=== PATIENT | female | born 1945 | race Caucasian/White ===

== ENCOUNTER 2022-06-03 05:10 | Inpatient (IN) | payer OTHER, MEDICARE ==
[~2022-06-03] VITALS: Ht 172.7 cm; Wt 102.5 kg
[~2022-06-03 05:10] MED LIST: ACET-2634 PO; ACET325T PO; ANT30 PO; CAT.1 PO; DULO60CA42 PO; IBUP-1968 PO; LIP10 PO; LORA0.5T PO; METF-379 PO; METO50TA7 PO; MOM PO; SER25 PO; Theragran PO; ZOLP5TAB2 PO
[2022-06-03 07:08] LABS: INR 0.9 (0.8-1.2); PROTHROMBIN TIME 9.8 SECS (9.5-12.5)
[2022-06-03] MEDS ORDERED: DULO60CA42 PO (07:12)
[2022-06-03] MEDS ORDERED: BUPR75TA20 PO (07:12)
[2022-06-03] MEDS ORDERED: METF-1069 PO (07:12)
[2022-06-03] MEDS ORDERED: TELM1TAB34 PO (07:12)
[2022-06-03] MEDS ORDERED: DAPA10TA PO (07:12)
[2022-06-03] MEDS ORDERED: LEVO75TA7 PO (07:12)
[2022-06-03] MEDS ORDERED: LIP10 PO (07:12)
[2022-06-03] MEDS ORDERED: QUET50TA PO (07:12)
[2022-06-03] MEDS ORDERED: ACETAMINOPHEN I.V. 1000 MG 100 ML IV ONE (07:16)
[2022-06-03] MEDS ORDERED: LIDOCAINE 2%, 20 ML MDV ONE (07:20)
[2022-06-03] MEDS ORDERED: LR 1,000 ML IV.SOLN IV ONE (07:20)
[2022-06-03] MEDS ORDERED: ceFAZolin SODIUM 2 GM VIAL ONE (07:20)
[2022-06-03] MEDS ORDERED: MIDAZOLAM HCL 2 MG/2 ML VIAL (VERSED) ONE (07:20)
[2022-06-03] MEDS ORDERED: TRANEXAMIC ACID 1,000 MG/10 ML VIAL ONE (07:20)
[2022-06-03] MEDS ORDERED: ROCURONIUM BROMIDE 10 MG/ML (ZEMURON) ONE (07:20)
[2022-06-03] MEDS ORDERED: VANCOMYCIN HCL 1000 MG/VIAL IV ONE (07:20)
[2022-06-03] MEDS ORDERED: NEOSTIGMINE METHYLSULFATE 1 MG/ML, 10 ML VIAL ONE (07:20)
[2022-06-03] MEDS ORDERED: BUPIVACAINE /PF 0.75% 10 ML VIAL INJ ONE (07:20)
[2022-06-03] MEDS ORDERED: NS IRRIG SOLN 1000 ML IR ONE (07:20)
[2022-06-03] MEDS ORDERED: NS 1000 ML IV.SOLN IV ONE (07:20)
[2022-06-03] MEDS ORDERED: ALBUTEROL MDI INHALATION 8 GM INH ONE (07:20)
[2022-06-03] MEDS ORDERED: ONDANSETRON HCL 4 MG/2 ML VIAL ONE (07:20)
[2022-06-03] MEDS ORDERED: PHENYLEPHRINE HCL 10 MG/ML VIAL (NEOSYNEPHRINE) ONE (07:20)
[2022-06-03] MEDS ORDERED: PROPOFOL 200MG/ 20ML VIAL (DIPRIVAN) IV ONE (07:20)
[2022-06-03] MEDS ORDERED: SUGAMMADEX SODIUM 200 MG/2 ML VIAL IV ONE (07:20)
[2022-06-03] MEDS ORDERED: DESFLURANE 15 MIN GAS INH ONE (07:20)
[2022-06-03] MEDS ORDERED: MORPHINE SULFATE 10MG/10ML PF AMP ONE (07:20)
[2022-06-03] MEDS ORDERED: METOPROLOL TARTRATE 5 MG/5 ML VIAL ONE (07:20)
[2022-06-03] MEDS ORDERED: METF-379 PO (07:24)
[2022-06-03] MEDS ORDERED: BUPIVACAINE LIPOSOME/PF 266 MG/20 ML VIAL INFIL ONE (08:45)
[2022-06-03] MEDS ORDERED: NALOXONE HCL 0.4 MG/ML AMP (NARCAN) IVP PRN ×4 (09:00→11:00)
[2022-06-03] MEDS ORDERED: NACL 0.9% 1,000 ML IV SCH (09:00)
[2022-06-03] MEDS ORDERED: ONDANSETRON HCL 4 MG/2 ML VIAL IVP PRN ×2 (09:00→11:45)
[2022-06-03] MEDS ORDERED: MEPERIDINE HCL/PF 25 MG/ML DISP.SYRIN IVP PRN (09:00)
[2022-06-03] MEDS ORDERED: METOCLOPRAMIDE HCL 10 MG/2 ML VIAL IVP PRN ×2 (09:00→11:00)
[2022-06-03] MEDS ORDERED: HYDROmorphone 1 MG/ML INJ. CARTRIDGE IVP PRN ×3 (09:00→11:00)
[2022-06-03] MEDS ORDERED: hydrALAZINE HCL 20 MG/ML VIAL IVP PRN (09:00)
[2022-06-03] MEDS ORDERED: DIPHENHYDRAMINE INJ 50 MG/ML VIAL IVP PRN (09:00)
[2022-06-03] MEDS ORDERED: LABETALOL 100 MG/ 20ML VIAL IVP PRN (09:00)
[2022-06-03] MEDS ORDERED: ePHEDrine sulfate 50 MG/ML VIAL IVP PRN (09:00)
[2022-06-03] MEDS ORDERED: BISACODYL 10 MG/SUPPOSITORY RC PRN (11:00)
[2022-06-03] MEDS ORDERED: DIPHENHYDRAMINE HCL 25 MG CAPSULE PO PRN (11:00)
[2022-06-03] MEDS ORDERED: LACTULOSE 20 GM/30 ML UDC PO PRN (11:00)
[2022-06-03] MEDS ORDERED: oxyCODONE HCL 5 MG TABLET PO PRN (11:00)
[2022-06-03] MEDS ORDERED: traMADol HCL HCL 50 MG TABLET (ULTRAM) PO PRN (11:00)
[2022-06-03] MEDS ORDERED: LORATADINE 10 MG TABLET PO PRN (11:00)
[2022-06-03] MEDS ORDERED: D5W 1,000 ML IV PRN (11:15)
[2022-06-03] MEDS ORDERED: DEXTROSE 50% JECT 50 ML DISP.SYRIN IVP PRN (11:15)
[2022-06-03] MEDS ORDERED: GLUCOSE (DEXTROSE) ORAL GEL -Adults PO PRN (11:15)
[2022-06-03] MEDS ORDERED: HYDROmorphone 1 MG/ML INJ. CARTRIDGE ONE (11:29)
[2022-06-03] MEDS: HYDROmorphone 1 MG/ML INJ. CARTRIDGE IVP PRN ×3 (11:44→17:23)
[2022-06-03] MEDS ORDERED: TRANEXAMIC ACID 1,000 MG in NS 50 ML IV ONE (11:45)
[2022-06-03] MEDS ORDERED: TRANEXAMIC ACID 1,000 MG/10 ML VIAL IV ONE (11:45)
[2022-06-03] MEDS: ceFAZolin SODIUM 2 GM in D5W 50 ML IV SCH ×2 (13:47→21:13)
[2022-06-03 14:35] VITALS: BP_SYST 111
[2022-06-03] MEDS: ACETAMINOPHEN 500 MG TABLET PO SCH ×2 (14:57→21:07)
[2022-06-03 16:20] VITALS: BP_SYST 129
[2022-06-03 20:00] VITALS: BP_SYST 121
[2022-06-03] MEDS: oxyCODONE HCL 5 MG TABLET PO PRN (21:07)
[2022-06-03] MEDS: SENNOSIDES/DOCUSATE SODIUM 1 TAB TABLET(SENOKOT-S) PO SCH (21:08)
[2022-06-04] MEDS: HYDROmorphone 1 MG/ML INJ. CARTRIDGE IVP PRN ×3 (00:21→05:50)
[2022-06-04 00:46] VITALS: BP_SYST 131
[2022-06-04] MEDS: ceFAZolin SODIUM 2 GM in D5W 50 ML IV SCH (04:53)
[2022-06-04] MEDS: INSULIN REGULAR, HUMAN 100 UNITS/ML, 3 ML VIAL (humuLIN R) SUBCUT PRN ×3 (05:56→21:39)
[2022-06-04] MEDS: ACETAMINOPHEN 500 MG TABLET PO SCH ×3 (06:00→21:36)
[2022-06-04 06:28] LABS: BASOPHILS # (AUTO) 0.1 K/uL (0.0-0.2); BASOPHILS % (AUTO) 0.7 % (0.0-2.0); EOSINOPHILS # (AUTO) 0.1 K/uL (0.0-0.4); EOSINOPHILS % (AUTO) 1.7 % (0.0-4.0); HEMATOCRIT 28.3 % (36-48); HEMOGLOBIN 9.4 g/dL (12.0-16.0); LYMPHOCYTES # (AUTO) 0.8 K/uL (1.0-5.5); LYMPHOCYTES % (AUTO) 10.3 % (20.5-51.5); MEAN CORPUSCULAR HEMOGLOBIN 31 pg (27-31); MEAN CORPUSCULAR HGB CONC 33 % (32-36); MEAN CORPUSCULAR VOLUME 92 fL (79.0-98.0); MONOCYTES # (AUTO) 0.6 K/uL (0.0-1.0); MONOCYTES % (AUTO) 7.6 % (1.7-9.3); NEUTROPHILS # (AUTO) 6.3 K/uL (1.8-7.7); NEUTROPHILS % (AUTO) 79.7 % (40.0-70.0); PLATELET COUNT (AUTO) 114 K/uL (130-430); RED BLOOD CELL COUNT(AUTO) 3.07 MIL/uL (4.2-6.2); RED CELL DISTRIBUTION WIDTH 14.3 % (9.0-15.0); WHITE BLOOD COUNT (AUTO) 7.9 K/uL (4.8-10.8)
[2022-06-04 07:11] LABS: ALANINE AMINOTRANSFERASE 19 U/L (12-78); ALBUMIN 3.1 g/dL (3.4-4.8); ANION GAP 9 (5-15); ASPARTATE AMINOTRANSFERASE 25 U/L (10-37); CALCIUM 8.6 mg/dL (8.4-11.0); CHLORIDE 104 mmol/L (98-107); CREATININE 1.36 mg/dL (0.55-1.30); GLUCOSE 179 mg/dL (70-99); TOTAL BILIRUBIN 0.3 mg/dL (0.0-1.0); UREA NITROGEN, BLOOD 15 mg/dL (8-21)
[2022-06-04 07:58] VITALS: BP_SYST 146
[2022-06-04] MEDS: SENNOSIDES/DOCUSATE SODIUM 1 TAB TABLET(SENOKOT-S) PO SCH ×2 (08:36→21:30)
[2022-06-04] MEDS: ASPIRIN 81 MG TAB.CHEW PO SCH ×2 (08:36→21:28)
[2022-06-04] MEDS: CELECOXIB 200 MG CAPSULE PO SCH ×2 (11:20→23:37)
[2022-06-04 11:32] VITALS: BP_SYST 122
[2022-06-04] MEDS: oxyCODONE HCL 5 MG TABLET PO PRN ×2 (11:33→17:37)
[2022-06-04] MEDS ORDERED: CEFA250S32 PO (11:39)
[2022-06-04] MEDS ORDERED: OXYIR5 PO (11:39)
[2022-06-04] MEDS ORDERED: ASA81 PO (11:39)
[2022-06-04] MEDS: cephALEXin 500 MG CAPSULE PO SCH ×2 (14:01→21:29)
[2022-06-04 15:30] VITALS: BP_SYST 92
[2022-06-04 17:37] VITALS: BP_SYST 125
[2022-06-04 20:00] VITALS: BP_SYST 100
[2022-06-04] MEDS ORDERED: ATORVASTATIN 10 MG TABLET PO SCH (21:00)
[2022-06-04] MEDS: QUEtiapine FUMARATE 100 MG TABLET PO SCH (21:29)
[2022-06-05 00:14] VITALS: BP_SYST 126
[2022-06-05] MEDS: ACETAMINOPHEN 500 MG TABLET PO SCH (05:19)
[2022-06-05 05:47] VITALS: BP_SYST 128
[2022-06-05] MEDS ORDERED: LEVOTHYROXINE SODIUM 0.075 MG TABLET PO SCH (07:00)
[2022-06-05 07:42] VITALS: BP_SYST 128
[2022-06-05] MEDS: ASPIRIN 81 MG TAB.CHEW PO SCH (08:09)
[2022-06-05] MEDS: cephALEXin 500 MG CAPSULE PO SCH (08:10)
[2022-06-05] MEDS: SENNOSIDES/DOCUSATE SODIUM 1 TAB TABLET(SENOKOT-S) PO SCH (08:10)
[2022-06-05] MEDS: QUEtiapine FUMARATE 100 MG TABLET PO SCH (08:10)
[2022-06-05] MEDS: oxyCODONE HCL 5 MG TABLET PO PRN (08:44)
[2022-06-05] MEDS ORDERED: buPROPion HCL 75 MG TABLET PO SCH (09:00)
[2022-06-05] MEDS ORDERED: DULoxetine HCL 30 MG CAPSULE.DR (CYMBALTA) PO SCH (09:00)
[2022-06-05 09:15] VITALS: BP_SYST 112; BP_SYST 128
== END 2022-06-05 11:10 | DRG 470 ==
LOC: SMU 05:10
PROVIDERS: ADMIT Student in an Organized Health Care Education/Training Program; ATTEND Student in an Organized Health Care Education/Training Program
PROC: 0SRB0JZ Replacement of Left Hip Joint with Synthetic Substitute, Open Approach (ICD-10-PCS; principal; 2022-06-03 07:30)
DX: M16.12 Unilateral primary osteoarthritis, left hip (principal); Z20.822 Contact with and (suspected) exposure to COVID-19
CPT/HCPCS: 36415; 71046-TC; 72170-TC; 76001; 80053; 82962; 84132; 85025; 85610-TC; 85730-TC; 87081; 88305; 88311; 97110-GP; 97112-GP; 97116-GP; 97163-GP; 97530-GP; C1713; C1776; C9290; J0131; J0690; J1170; J2001; J2274; J2370; J2405; J2704; J2710; J3370; J3465; J3490; J7030; J7060; J7120; U0003